=== PATIENT | female | born 1950 | race Two or more races ===

== ENCOUNTER 2017-07-13 08:39 | Outpatient (CLI) | payer OTHER ==
[~2017-07-13 08:39] MED LIST: AMARYL; CALAN80 MG; CATAPRES0.1 MG; FIRST-OMEPR2 MG/1 ML; LEVOXYL25 MCG; SINGULAIR 10MG10 MG; SPIRONOLACTONE1 GM; THEOPHYLLINE600 MG; ZOCOR5 MG
== END 2017-07-13 08:44 | disposition home or self-care (01) ==
LOC: LAB 08:39
DX: N18.2 Chronic kidney disease, stage 2 (mild) (principal); Z51.81 Encounter for therapeutic drug level monitoring

== ENCOUNTER 2017-07-15 07:30 | Outpatient (CLI) | payer OTHER | END 2017-07-15 07:41 | disposition home or self-care (01) | LOC: TOM 07:30 | DX: N18.2 Chronic kidney disease, stage 2 (mild) (principal) | CPT/HCPCS: 74170; Q9965 ==

== ENCOUNTER 2017-09-28 10:20 | Outpatient (CLI) | payer OTHER | END 2017-09-28 10:34 | disposition home or self-care (01) | LOC: NUCLEAR 10:20 | DX: R00.2 Palpitations (principal) ==

== ENCOUNTER 2019-01-24 10:27 | Outpatient (CLI) | payer OTHER | END 2019-01-24 10:30 | disposition home or self-care (01) | LOC: RAD 10:27 | DX: M12.871 Other specific arthropathies, not elsewhere classified, right ankle and foot (principal); M12.872 Other specific arthropathies, not elsewhere classified, left ankle and foot ==

== ENCOUNTER 2019-07-15 12:09 | Inpatient (IN) | payer OTHER ==
[~2019-07-15] VITALS: Ht 149.9 cm; Wt 49.9 kg
--- NOTE | 2019-07-15 12:23 | NUR ---
SE RECIBE PTE. FEMENINA ALERTA CONCIENTE Y ORIENTADA QUE REFIERE ASMA DESDE EL 06/23/2019 ESTA EN [place]. Y NO LE FUNCION DR. OROURKE KAUR LA ENVIO A ER. SE PASA A UNIDAD DE ASMA.
--- NOTE | 2019-07-15 13:25 | NUR ---
PACIENTE EVALUADO POR LA ANIBAL. BESSIE SE TOMAMUESTRAS D ESNAGRE Y SE LE REALIZA RAPID TEST SE ADMINTRA MEDICMANMTO Y SE DJE ANE OBSERVACION PO RCAMBIOS EN BALES CONDICON.
--- NOTE | 2019-07-15 15:00 | NUR ---
PACIENTE FEMINA ALERTA Y ORIENTADA PENDIENTE A REALIZAR PICK FLOW POR PARTE DE TERAPIA YA QUE ES PARTE DEL TRATAMIENTO ORDENADO POR EL MEDICO. LUEGO DE LA PRUEBA SER RE EVALUADA POR EL MEDICO. AL MOMENTO PACIENTE ESTABLE DENTRO DE BALES CONDICION. SE REA PRIVACIDAD Y SEGURIDAD EN TODO MOMENTO.
[2019-07-18] MEDS ORDERED: GLIMEPIRIDE2 M1 PO (07:53)
[2019-07-18] MEDS ORDERED: CANDESARTAN CILE8 M1 PO (07:54)
[2019-07-18] MEDS ORDERED: SPIRONOLACTONE25 MG PO (07:54)
== END 2019-07-19 10:48 | disposition home or self-care (01) | DRG 202 ==
LOC: ER 12:09 → SURH 15:59
PROVIDERS: ADMIT Internal Medicine Cardiovascular Disease
PROC: 3E0F7GC Introduction of Other Therapeutic Substance into Respiratory Tract, Via Natural or Artificial Opening (ICD-10-PCS; 2019-07-15)
PROC: 4A033R1 Measurement of Arterial Saturation, Peripheral, Percutaneous Approach (ICD-10-PCS; 2019-07-15)
PROC: BB24ZZZ Computerized Tomography (CT Scan) of Bilateral Lungs (ICD-10-PCS; principal; 2019-07-16)
DX: J45.41 Moderate persistent asthma with (acute) exacerbation (principal); J44.1 Chronic obstructive pulmonary disease with (acute) exacerbation; I10 Essential (primary) hypertension; E03.8 Other specified hypothyroidism; E11.9 Type 2 diabetes mellitus without complications; Z79.4 Long term (current) use of insulin